=== PATIENT | male | born 1965 | race Caucasian/White ===

== ENCOUNTER 2017-05-20 01:29 | Emergency (ER) | payer OTHER ==
[~2017-05-20] VITALS: Ht 172.7 cm; Wt 75.0 kg
[2017-05-20 01:35] VITALS: BP 155/82; PULSE 77; RESP 18; TEMP 98; O2SAT 98
--- NOTE | 2017-05-20 01:57 | PD ---
HPI Chief Complaint: Fall Time Seen by Provider: 01:47 Travel History International Travel<30 days: No Contact w/Intl Traveler<30days: No Traveled to known affect area: No History of Present Illness HPI Patient is a 51-year-old male presents emergency department for evaluation after a fall off of a 4 foot high stage. He was playing drums loss his balance fell backwards and hit his back of his head on concrete. He is complaining of left shoulder pain. No loss of consciousness, he does endorse some alcohol ingestion today. No history of blood thinner use. Symptoms are moderate, left shoulder without radiation, context as above, onset just prior to arrival. [facility] Past Medical History Diminished Hearing: No Past Surgical History Appendectomy: Yes Social History Alcohol Use: Yes (BEER EVERY COUPLE OF DAYS) Tobacco Use: Yes (DIP OCCASIONALLY) Substance Use: No Allergies-Medications (Allergen,Severity, Reaction): Coded Allergies: aspirin (Verified Allergy, Unknown, HIVES, 05/20/17) penicillin G (Verified Allergy, Unknown, HIVES, 05/20/17) Review of Systems Except as stated in HPI: all other systems reviewed are Neg Physical Exam Narrative GENERAL: Well-developed well-nourished, mild tremor in no obvious distress. SKIN: Focused skin assessment warm/dry. No bruises nor lacerations seen on his trunk abdomen chest pelvis or extremities. HEAD: Atraumatic. Normocephalic. No duncan signs no raccoons eyes EYES: Pupils equal and round. No scleral icterus. No injection or drainage. ENT: No nasal bleeding or discharge. Mucous membranes pink and moist. NECK: Trachea midline. No JVD. CARDIOVASCULAR: Regular rate and rhythm. No murmur appreciated. RESPIRATORY: No accessory muscle use. Clear to auscultation. Breath sounds equal bilaterally. GASTROINTESTINAL: Abdomen soft, non-tender, nondistended. Hepatic and splenic margins not palpable. MUSCULOSKELETAL: No obvious deformities. No clubbing. No cyanosis. No edema. No midline CT or L-spine tenderness, there is some minimal tenderness over the posterior aspect of the shoulder the superior most shoulder blade. No tenderness to the rib cage itself. Extremities are atraumatic, pulses motor and sensory intact distally in all 4 extremities. NEUROLOGICAL: Awake and alert. No obvious cranial nerve deficits. Motor grossly within normal limits. Normal speech. PSYCHIATRIC: Appropriate mood and affect; insight and judgment normal. Data Data Last Documented VS Vital Signs Date Time Temp Pulse Resp B/P (MAP) Pulse Ox O2 Delivery O2 Flow Rate FiO2 05/20/17 02:46 82 16 132/60 (84) 98 Room Air 05/20/17 01:35 98.0 Orders Orders Chest, Single Ap (05/20/17 ) Ct Brain W/O Iv Contrast(Rout) (05/20/17 ) Ct Cerv Spine W/O Contrast (05/20/17 ) Shoulder, Complete (>2vws) (05/20/17 ) Morphine Inj (Morphine Inj) (05/20/17 02:00) Ct Brain W/O Iv Contrast(Rout) (05/20/17 ) Ed Discharge Order (05/20/17 05:18) [facility] Medical Decision Making Medical Screen Exam Complete: Yes Emergency Medical Condition: Yes Differential Diagnosis Fall, head injury, shoulder injury, humerus fracture. Narrative Course Patient roomed in emergency department, CT head initially limited by motion artifact cannot completely exclude frontal hematoma. The patient was discussed with Dr. Chinchilla in radiology recommends a repeat scan should be adequate to rule out hemorrhage. This is done and indeed does exclude hemorrhage. The patient after morphine is feeling much better, tremor resolved. His girlfriend is arrived was clinically sober as well as the patient and they request discharge. Discussed symptomatic management returned ED criteria. He is stable for discharge Last 48 hours Impressions Shoulder X-Ray 05/20/17 0000 Signed Impressions: Service Date/Time: Saturday, May 20, 2017 02:10 - CONCLUSION: Mild degenerative changes without fracture. Mitch Chinchilla MD Head CT 05/20/17 0000 Signed Impressions: Service Date/Time: Saturday, May 20, 2017 04:13 - CONCLUSION: Normal examination. No hemorrhage. Mitch Chinchilla MD Head CT 05/20/17 0000 Signed Impressions: Service Date/Time: Saturday, May 20, 2017 02:23 - CONCLUSION: 1. Questionable punctate hemorrhage left frontal lobe versus motion artifact. Mitch Chinchilla MD Chest X-Ray 05/20/17 0000 Signed Impressions: Service Date/Time: Saturday, May 20, 2017 02:07 - CONCLUSION: No acute disease. Mitch Chinchilla MD Cervical Spine CT 05/20/17 0000 Signed Impressions: Service Date/Time: Saturday, May 20, 2017 02:23 - CONCLUSION: 1. No fracture or subluxation. Mitch Chinchilla MD Diagnosis Primary Impression: Closed head injury Qualified Codes: S09.90XA - Unspecified injury of head, initial encounter Patient Instructions: General Instructions, RICE Therapy (GEN) Disposition: 01 DISCHARGE HOME Condition: Stable Johann Garcia MD May 20, 2017 01:57
[2017-05-20] MEDS ORDERED: MORPHINE SULFATE 4 MG/ML INJ IV PUSH ONE (02:00)
--- NOTE | 2017-05-20 02:38 | RADRPT ---
EXAM DATE/TIME: 05/20/2017 02:07 [facility] COMPARISON: No previous studies available for comparison. INDICATIONS : Fell. MEDICAL HISTORY : None. SURGICAL HISTORY : None. ENCOUNTER: Initial ACUITY: 1 day PAIN SCORE: 10/10 LOCATION: Bilateral chest FINDINGS: A single view of the chest demonstrates the lungs to be symmetrically aerated without evidence of mas s, infiltrate or effusion. The cardiomediastinal contours are unremarkable. Osseous structures are intact. CONCLUSION: No acute disease. Mitch Chinchilla MD on May 20, 2017 at 2:37 Board Certified Radiologist. This report was verified electronically.
--- NOTE | 2017-05-20 02:39 | RADRPT ---
EXAM DATE/TIME: 05/20/2017 02:10 [facility] COMPARISON: No previous studies available for comparison. INDICATIONS : Fell. MEDICAL HISTORY : None. SURGICAL HISTORY : None. ENCOUNTER: Initial ACUITY: 1 day PAIN SCORE: 10/10 LOCATION: Left shoulder. FINDINGS: Multiple view examination of the left shoulder demonstrates no evidence of fracture or dislocation. The glenohumeral and acromioclavicular joints are maintained. Mild degenerative changes. There is no rmal range of motion between internal and external rotation. Bony mineralization is normal. CONCLUSION: Mild degenerative changes without fracture. Mitch Chinchilla MD on May 20, 2017 at 2:37 Board Certified Radiologist. This report was verified electronically.
--- NOTE | 2017-05-20 02:41 | RADRPT ---
EXAM DATE/TIME: 05/20/2017 02:23 [facility] COMPARISON: No previous studies available for comparison. INDICATIONS : Trauma, fall. RADIATION DOSE: 35.15 CTDIvol (mGy) MEDICAL HISTORY : None SURGICAL HISTORY : None. ENCOUNTER: Initial ACUITY: 1 day PAIN SCALE: 5/10 LOCATION: cranial TECHNIQUE: Multiple contiguous axial images were obtained of the head. Using automated exposure control and adj ustment of the mA and/or kV according to patient size, radiation dose was kept as low as reasonably a chievable to obtain optimal diagnostic quality images. DICOM format image data is available electro nically for review and comparison. FINDINGS: CEREBRUM: Questionable punctate hemorrhage in the left frontal lobe versus artifact. The ventricles are normal for age. No evidence of midline shift, mass lesion, hemorrhage or acute infarction. No extra-axial fluid collections are seen. POSTERIOR FOSSA: The cerebellum and brainstem are intact. The 4th ventricle is midline. The cerebellopontine angle i s unremarkable. EXTRACRANIAL: The visualized portion of the orbits is intact. SKULL: The calvaria is intact. No evidence of skull fracture. CONCLUSION: 1. Questionable punctate hemorrhage left frontal lobe versus motion artifact. Mitch Chinchilla MD on May 20, 2017 at 2:38 Board Certified Radiologist. This report was verified electronically.
--- NOTE | 2017-05-20 02:43 | RADRPT ---
EXAM DATE/TIME: 05/20/2017 02:23 [facility] COMPARISON: No previous studies available for comparison. INDICATIONS : Trauma, fall. RADIATION DOSE: 14.91 CTDIvol (mGy) MEDICAL HISTORY : None SURGICAL HISTORY : None. ENCOUNTER: Initial ACUITY: 1 day PAIN SCALE: 5/10 LOCATION: neck TECHNIQUE: Volumetric scanning of the cervical spine was performed. Multiplanar reconstructions in the sagittal, coronal and oblique axial planes were performed. Using automated exposure control and adjustment o f the mA and/or kV according to patient size, radiation dose was kept as low as reasonably achievable to obtain optimal diagnostic quality images. DICOM format image data is available electronically f or review and comparison. FINDINGS: VERTEBRAE: Normal vertebral body height. ALIGNMENT: No evidence of subluxation. C2-C3: The bony spinal canal is normal in size. No evidence of disc bulge or herniation. The neural forami na are bilaterally patent. C3-C4: Small central protrusion. The neural foramina are bilaterally patent. C4-C5: The bony spinal canal is normal in size. No evidence of disc bulge or herniation. The neural forami na are bilaterally patent. C5-C6: Mild broad-based disc bulge. The neural foramina are bilaterally patent. C6-C7: The bony spinal canal is normal in size. No evidence of disc bulge or herniation. The neural forami na are bilaterally patent. C7-T1: The bony spinal canal is normal in size. No evidence of disc bulge or herniation. The neural forami na are bilaterally patent. CONCLUSION: 1. No fracture or subluxation. Mitch Chinchilla MD on May 20, 2017 at 2:40 Board Certified Radiologist. This report was verified electronically.
[2017-05-20 02:46] VITALS: BP 132/60; PULSE 82; RESP 16; O2SAT 98
--- NOTE | 2017-05-20 04:45 | RADRPT ---
EXAM DATE/TIME: 05/20/2017 04:13 [facility] COMPARISON: CT BRAIN W/O CONTRAST, May 20, 2017, 2:23. INDICATIONS : Trauma, fall. Repeat. RADIATION DOSE: 56.35 CTDIvol (mGy) MEDICAL HISTORY : None SURGICAL HISTORY : None. ENCOUNTER: Initial ACUITY: 1 day PAIN SCALE: 5/10 LOCATION: cranial TECHNIQUE: Multiple contiguous axial images were obtained of the head. Using automated exposure control and adj ustment of the mA and/or kV according to patient size, radiation dose was kept as low as reasonably a chievable to obtain optimal diagnostic quality images. DICOM format image data is available electro nically for review and comparison. FINDINGS: CEREBRUM: The ventricles are normal for age. No evidence of midline shift, mass lesion, hemorrhage or acute in farction. No extra-axial fluid collections are seen. POSTERIOR FOSSA: The cerebellum and brainstem are intact. The 4th ventricle is midline. The cerebellopontine angle i s unremarkable. EXTRACRANIAL: The visualized portion of the orbits is intact. SKULL: The calvaria is intact. No evidence of skull fracture. CONCLUSION: Normal examination. No hemorrhage. Mitch Chinchilla MD on May 20, 2017 at 4:43 Board Certified Radiologist. This report was verified electronically.
== END 2017-05-20 05:29 | disposition home or self-care (01) ==
LOC: NEPE 01:29
DX: S09.90XA Unspecified injury of head, initial encounter (principal); M25.512 Pain in left shoulder; W17.89XA Other fall from one level to another, initial encounter; Z72.0 Tobacco use
CPT/HCPCS: 70450; 71010; 72125; 73030; 96374; 99285; J2270